=== PATIENT | female | born 2000 | race Caucasian/White ===

== ENCOUNTER 2021-12-07 15:33 | Emergency (ER) | payer BC ==
[~2021-12-07] VITALS: Ht 162.6 cm; Wt 86.4 kg
[2021-12-07 15:35] VITALS: BP 128/94
[2021-12-07] MEDS ORDERED: CefTRIAXone 500MG IM Kit w/LIDOcaine (for pt below or = to 150kg) IM ONE (17:40)
[2021-12-07] MEDS ORDERED: azithromycin 250mg tablet PO ONE (17:40)
[2021-12-07] MEDS ORDERED: TINIDAZOLE 500 MG TABLET PO ONE (17:40)
[2021-12-07 17:56] LABS: URINE HCG NEGATIVE (NEG)
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
== END 2021-12-07 20:20 | disposition home or self-care (01) ==
LOC: EEVIPCON 15:34 → ER 15:34
DX: T74.21XA Adult sexual abuse, confirmed, initial encounter (principal)
CPT/HCPCS: 81025; 96372; 99284; J0696; A4565